=== PATIENT | male | born 1990 | race Caucasian/White ===

== ENCOUNTER 2017-11-28 01:44 | Emergency (ER) | payer SELFPAY ==
[2017-11-28] MEDS ORDERED: DIPH,PERTUS(ACELL)TETVAC-LF 0.5 ML VIAL IM ONE (01:59)
--- NOTE | 2017-11-28 02:02 | ED ---
General Adult HPI - General Chief complaint: Wound/Laceration Stated complaint: Finger Laceration Time Seen by Provider: 11/28/17 01:50 Source: patient, RN notes reviewed Mode of arrival: ambulatory Limitations: no limitations - History of Present Illness Initial comments: This is a 27 her old male who presents emergency Department with a laceration to the distal aspect of his right middle finger. Patient states he was using a kitchen knife and asked that he lacerated his finger. Patient has been drinking. Patient is not up-to-date on tetanus. Patient has full range of motion of all the finger joints. - Related Data Previous Rx's Medication Instructions Recorded Cephalexin [Keflex] 500 mg PO Q6HR #28 cap 11/28/17 Allergies Allergy/AdvReac Type Severity Reaction Status Date / Time pollen extracts Allergy Wheezing Verified 11/28/17 01:55 Review of Systems ROS Statement: Those systems with pertinent positive or pertinent negative responses have been documented in the HPI. ROS Other: All systems not noted in ROS Statement are negative. Past Medical History Past Medical History: Asthma History of Any Multi-Drug Resistant Organisms: None Reported Past Surgical History: No Surgical Hx Reported Past Psychological History: No Psychological Hx Reported Smoking Status: Current every day smoker Past Alcohol Use History: Abuse, Heavy Past Drug Use History: Marijuana General Exam - General Exam Comments Initial Comments: GENERAL Patient is well-developed and well-nourished. Patient is in mild distress. EYES Patient's pupils are equal and round. Extraocular motion is intact SKIN Unremarkable NEURO The patient is alert and oriented 3 PYSCH Patient has normal interpersonal interactions. MUSCULOSKELETAL Patient's right middle finger has a laceration which is half the circumference of his distal finger it angles underneath the nail it almost completely avulsed the nail the distal aspect of the finger is still attached Limitations: no limitations Course Vital Signs 11/28/17 01:51 Temperature 97.8 F Pulse Rate 88 Respiratory 16 Rate Blood Pressure 161/93 O2 Sat by Pulse 98 Oximetry Procedures - Laceration Laceration #1 Consent Obtained: verbal consent Time Out Performed: Yes Indication: laceration Site: other (Right middle finger) Description: flap Depth: simple, single layer Anesthetic Used: lidocaine 1% Anesthesia Technique: nerve block Amount (mls): 3 Pre-repair: wound explored, irrigated extensively Type of Sutures: vicryl Size of Sutures: 4-0 Number of Sutures: 5 Technique: simple, interrupted Complications: bleeding Patient Tolerated Procedure: well Medical Decision Making - Medical Decision Making X-ray shows a fracture of the distal phalanx making this an open fracture. I gave the patient a gram of Ancef Disposition Clinical Impression: Laceration, Phalanx, distal fracture of finger Disposition: HOME SELF-CARE Condition: Good Instructions: Laceration (ED) Additional Instructions: Sutures should be removed in 10 days Prescriptions: Cephalexin [Keflex] 500 mg PO Q6HR #28 cap Referrals: Riki Gregg MD [Primary Care Provider] - 1-2 days
[2017-11-28] MEDS ORDERED: ceFAZolin 1,000 MG VIAL IM STA (02:17)
--- NOTE | 2017-11-28 02:22 | XR ---
EXAMINATION TYPE: XR finger RT DATE OF EXAM: 11/28/2017 COMPARISON: NONE HISTORY: Laceration. Pain. TECHNIQUE: 3 views FINDINGS: There is nondisplaced 3 mm chip fracture of the tuft of the distal phalanx of the middle fi nger. There is some soft tissue deformity of the nailbed. There is no dislocation. IMPRESSION: Small chip fracture. No foreign bodies seen.
[2017-11-28 03:19] VITALS: BP 139/79; PULSE 83; RESP 20; TEMP 97.5
--- NOTE | 2017-12-01 03:00 | CDI ---
Documentation Clarification OP Dear Dr. Fabricio Finney Please provide finger laceration repair length. Thank you, Chris Delgado Manager Emergency If you have any questions, please contact Filler Shredder at [phone] [facility]
== END 2017-11-28 03:19 | disposition home or self-care (01) ==
LOC: EC 01:44
DX: S62.632B Displaced fracture of distal phalanx of right middle finger, initial encounter for open fracture (principal); F17.200 Nicotine dependence, unspecified, uncomplicated; Z23 Encounter for immunization; Z91.048 Other nonmedicinal substance allergy status; W26.0XXA Contact with knife, initial encounter
CPT/HCPCS: 99283; 12001; 96372; 90471; 73140; 90715; J0690; 96374

== ENCOUNTER 2020-01-11 21:27 | Observation (INO) | payer OTHER ==
[~2020-01-11 21:27] MED LIST: THIAMINE 100 MG TAB PO SCH
[2020-01-11] MEDS ORDERED: NALOXONE 0.4 MG/ML 1 ML VIAL IV PRN (22:48)
[2020-01-11] MEDS ORDERED: LORazepam 2 MG/ML INJ IV PRN ×3 (22:49)
--- NOTE | 2020-01-11 22:52 | ED ---
Alcohol HPI - General Chief Complaint: Alcohol Stated Complaint: ETOH Source: patient, EMS Mode of arrival: EMS Limitations: no limitations - History of Present Illness Initial Comments: 29-year-old male presenting today for chief complaint of a call intoxication. Patient was brought in by EMS for occult intoxication after he showed up at his father's place of employment intoxicated. Patient has no complaints. Father states he does not have any other concerns other than his song being intoxicated. FatherLeon denied feeling as though patient was a threat to others or himself.Patient denies any recent fever, chills, shortness of breath, chest pain, back pain, abdominal pain, nausea or vomiting, numbness or tingling, dysuria or hematuria, constipation or diarrhea, headaches or visual changes, or any other complaints. - Related Data Previous Rx's Medication Instructions Recorded Cephalexin [Keflex] 500 mg PO Q6HR #28 cap 11/28/17 Allergies Allergy/AdvReac Type Severity Reaction Status Date / Time pollen extracts Allergy Wheezing Verified 11/28/17 01:55 Review of Systems ROS Statement: Those systems with pertinent positive or pertinent negative responses have been documented in the HPI. ROS Other: All systems not noted in ROS Statement are negative. Past Medical History Past Medical History: Asthma History of Any Multi-Drug Resistant Organisms: None Reported Past Surgical History: No Surgical Hx Reported Past Psychological History: No Psychological Hx Reported Smoking Status: Current every day smoker Past Alcohol Use History: Abuse, Heavy Past Drug Use History: Marijuana General Exam - General Exam Comments Initial Comments: General: The patient is awake and alert, in no distress Eye: Pupils are equal, round and reactive to light, extra-ocular movements are intact. No nystagmus. There is normal conjunctiva bilaterally. No signs of icterus. Ears, nose, mouth and throat: There are moist mucous membranes and no oral lesions. Neck: The neck is supple, there is no tenderness or JVD. Cardiovascular: There is a regular rate and rhythm. No murmur, rub or gallop is appreciated. Respiratory: Lungs are clear to auscultation, respirations are non-labored, breath sounds are equal. No wheezes, stridor, rales, or rhonchi. Gastrointestinal: Soft, non-distended, non-tender abdomen without masses or organomegaly noted. There is no rebound or guarding present. Musculoskeletal: Normal ROM, no tenderness. Strength 5/5. Sensation intact. Radial pulses equal bilaterally 2+. Neurological: A&O x 3. CN II-XII intact grossly , There are no obvious motor or sensory deficits. Coordination appears grossly intact. Speech is normal. Skin: Skin is warm and dry and no rashes or lesions are noted. Psychiatric: Cooperative, appropriate mood & affect, normal judgment. Limitations: no limitations Course Vital Signs 01/11/20 21:46 Temperature 98.6 F Pulse Rate 118 H Respiratory 17 Rate Blood Pressure 156/100 O2 Sat by Pulse 98 Oximetry Medical Decision Making - Medical Decision Making 29yo presenting for intoxication. No concerns for threat harm. Father states he cannot pick him up or bring him to the missionary home intoxicated. Pt states he will stay until sober. Given ETOH over 89 will be admitted for observation and IV fluids. Amrik agreeable to this care plan. Dr. Graff accepted. Disposition Clinical Impression: Alcohol intoxication Disposition: ADMITTED IP TO THIS [facility] Condition: Stable Is patient prescribed a controlled substance at d/c from ED?: No Time of Disposition: 22:54 Decision to Admit Reason: Admit from EC Decision Date: 01/11/20 Decision Time: 22:54
[2020-01-11] MEDS ORDERED: SODIUM CHLORIDE 0.9% 1,000 ML IV SCH (23:00)
[2020-01-11] MEDS ORDERED: THIAMINE 100 MG/ML 2 ML VIAL IM ONE (23:00)
--- NOTE | 2020-01-12 03:19 | P.HPIM ---
History of Present Illness H&P Date: 01/12/20 Chief Complaint: alcohol intoxication 29-year-old male with history of asthma, alcohol abuse With his father intoxicated with alcohol. 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 Patient father did not report any concerns regarding suicide or harm. Patient is doing well at time of interview denies any chest pain trouble breathing coughing denies any headache vision changes patient denies any suicidal or homicidal ideation. He admits that he has depressed mood he is taking Zoloft reports experienced no benefit from it so he stopped it. Patient has history of alcohol abuse in the past and he has relapsed recently. Review of Systems Pertinent positives as noted in HPI. All other systems were reviewed and are negative Past Medical History Past Medical History: Asthma History of Any Multi-Drug Resistant Organisms: None Reported Past Surgical History: No Surgical Hx Reported Past Psychological History: No Psychological Hx Reported Smoking Status: Current every day smoker Past Alcohol Use History: Abuse, Heavy Past Drug Use History: Marijuana - Past Family History family Family Medical History: No Reported History Medications and Allergies Home Medications Medication Instructions Recorded Confirmed Type Cephalexin [Keflex] 500 mg PO Q6HR #28 cap 11/28/17 Rx Allergies Allergy/AdvReac Type Severity Reaction Status Date / Time pollen extracts Allergy Wheezing Verified 11/28/17 01:55 Physical Exam Vitals: Vital Signs Temp Pulse Resp BP Pulse Ox 01/12/20 00:27 62 18 154/92 96 01/11/20 21:46 98.6 F 118 H 17 156/100 98 Intake and Output 01/11/20 01/11/20 01/12/20 14:59 22:59 06:59 Other: Weight 90.718 kg Constitutional: No acute distress, conversant, pleasant Eyes: Anicteric sclerae, moist conjunctiva, no lid-lag Pupils equal round reactive to light ENMT: NC/AT Oropharynx clear, no erythema, or exudates Neck: Supple, FROM, no masses, or JVD No carotid bruits No thyromegaly Lungs: Clear to auscultation Clear to percussion Normal respiratory effort, no accessory muscle use Cardiovascular: Heart regular in rate and rhythm, No murmurs, gallops, or rubs No peripheral edema Abdominal: Soft Nontender, no guarding, rebound or rigidity Abdomen moving with respiration Normoactive bowel sounds No hepatomegaly, No splenomegaly No palpable mass No abdominal wall hernia noted Skin: Normal temperature, tone, texture, turgor No induration No subcutaneous nodules No rash, lesions No ulcers Extremities: No digital cyanosis No clubbing Pedal pulses intact and symmetrical Radial pulses intact and symmetrical No calf tenderness Psychiatric: Alert and oriented to person, place and time Appropriate affect fair judgement Neuro Muscles Strength 5/5 in all 4 extremities Sensation to light touch grossly present throughout Cranial nerves II-XII grossly intact No focal sensory deficits Lymphatics: no palpable cervical or supraclavicular , or inguinal lymph nodes Assessment and Plan Assessment: 29-year-old male with history of alcohol abuse, asthma. Comes in intoxicated with alcohol admitted for close monitoring and IV fluid hydration anticipated length of stay less than 2 midnights Acute severe alcohol intoxication History of alcohol abuse Withdrawal precautions Benzos per CIWA scale Thiamine Seizure precautions IV fluid hydration CODE STATUS: Full code DVT prophylaxis: Mechanical Discussed with: Patient, ER, RN Anticipated length of stay less than [address]: Home A total of 75 minutes was spent on the care of this complex patient more than 50% of the time was spent in counseling and care coordination.
[2020-01-12 09:52] VITALS: BP 152/90; PULSE 87; RESP 14; TEMP 97.8
--- NOTE | 2020-01-12 15:55 | P.DS ---
Providers Date of admission: 01/11/20 23:02 Expected date of discharge: 01/12/20 Attending physician: Brad Graff MD Primary care physician: Stated None Hospital Course: Discharge Diagnosis: Acute alcohol intoxication Asthma without exacerbation Hospital Course: Patient is a 29-year-old male with a history of asthma who was brought into the hospital by his father due to showing up at work intoxicated. On arrival to the ER he was slightly tachycardic with a pulse of 118 and hypertensive with a blood pressure of 156/100. Both of these spontaneously reso lved without definitive management. He was monitored overnight. He was more awake alert and oriented on the morning of 01/11. He states he has been working on cutting down on his drinking at home. He has no intentions of quitting at this point in time and did not feel the need to detox at the hospital. He also states that he does not want to be involved with AA. He did not express any thoughts of self-harm. He was seen by social work and given resources on alcohol cessation programs. He was discharged home in stable condition. Patient seen and examined at bedside. Denies any headache, chest pain, shortness breath, nausea, or vomiting. Vital signs reviewed and stable. General: non toxic, no distress, appears at stated age Derm: warm, dry Head: atraumatic, normocephalic, symmetric Eyes: EOMI, no lid lag, anicteric sclera Mouth: no lip lesion, mucus membranes moist Cardiovascular: S1S2 reg, no murmur, positive posterior tibial pulse bilateral, Lungs: CTA bilateral, no rhonchi, no rales , no accessory muscle use Abdominal: soft, nontender to palpation, no guarding, no appreciable organomegaly Ext: no gross muscle atrophy, no edema, no contractures Neuro: CN II-XI grossly intact, no focal neuro deficits Psych: Alert, oriented, appropriate affect A total of 25 minutes of time were spent preparing this complex discharge summary . Patient Condition at Discharge: Stable Plan - Discharge Summary Discharge Rx Participant: No New Discharge Prescriptions: Discontinued Cephalexin [Keflex] 500 mg PO Q6HR #28 cap Follow up Appointment(s)/Referral(s): Camden Doran Jr, [Doctor of Osteopathic Medicine] - 1 Week Activity/Diet/Wound Care/Special Instructions: Activity: as tolerated Diet: Regular Special Instructions: Abstain from alcohol Do not drink and drive Discharge Disposition: HOME SELF-CARE
[2020-01-12] MEDS ORDERED: THIAMINE 100 MG TAB PO SCH (17:30)
== END 2020-01-12 12:21 | disposition home or self-care (01) ==
LOC: EC 21:27 → 5NMEDONC 23:02 → 1SOBS 01-12 08:39
PROVIDERS: ADMIT Internal Medicine; ATTEND Internal Medicine
DX: F10.129 Alcohol abuse with intoxication, unspecified (principal); J45.909 Unspecified asthma, uncomplicated; Y90.8 Blood alcohol level of 240 mg/100 ml or more; F17.200 Nicotine dependence, unspecified, uncomplicated; F32.9 Major depressive disorder, single episode, unspecified; R03.0 Elevated blood-pressure reading, without diagnosis of hypertension; Z91.048 Other nonmedicinal substance allergy status; Z91.14 Patient's other noncompliance with medication regimen; Z11.59 Encounter for screening for other viral diseases
CPT/HCPCS: 96360; 96361; 99285; G0378 ×3; U0003

== ENCOUNTER 2022-06-30 13:49 | Emergency (ER) | payer OTHER ==
[2022-06-30 14:20] VITALS: BP 149/90; PULSE 100; RESP 20; TEMP 97.7
[2022-06-30] MEDS ORDERED: ORPHENADRINE 30 MG/ML 2 ML VIAL IM STA (15:48)
[2022-06-30] MEDS ORDERED: KETOROLAC 15 MG/ML 1 ML VIAL IVP STA (15:48)
--- NOTE | 2022-06-30 16:23 | XR ---
EXAMINATION TYPE: XR thoracic spine 3 views, XR shoulder complete 3 views RT, XR lumbar spine 3V DATE OF EXAM: 06/30/2022 COMPARISON: NONE HISTORY: 31-year-old male with pain, no injury FINDINGS: Thoracic spine: There are small T12 ribs. All pedicles are visualized. Mild degenerative disc disease with endplate s pondylosis and disc space narrowing mid thoracic spine. Slightly accentuated midthoracic kyphosis. Ve rtebral body heights are preserved and alignment is maintained. Lumbar spine: Slight dextroconvex curvature centered at the upper lumbar spine. Again, small T12 ribs. 5 lumbar typ e vertebral bodies. Facet arthropathy lower lumbar spine. Somewhat short appearance to the pedicles i n the lower lumbar spine could reflect a component of congenital spinal canal narrowing. Vertebral la dy heights and disc spaces are maintained. Right shoulder: There is some distal clavicle osteolysis and moderate capsular hypertrophy at the AC joint. No abnorm al AC joint offset. Subacromial space is preserved. No tendinous or bursal calcifications. No acute f racture, subluxation, dislocation. IMPRESSION: 1. Right shoulder: Some distal clavicle osteolysis and moderate swelling of the AC joint capsule. Cor relate for repetitive microinjury such as from weight lifting or a recent trauma. Consider orthopedic follow-up. Otherwise, no acute osseous abnormality seen. 2. Thoracic spine: Mild degenerative disc disease midthoracic spine and accentuated mid thoracic kyph osis. No vertebral compression collapse or malalignment. 3. Lumbar spine: Slight dextroconvex curvature/scoliosis centered along the upper lumbar spine. Facet arthropathy lower lumbar spine. Somewhat short appearance to the pedicles in the lower lumbar spine could reflect a component of congenital spinal canal narrowing. No vertebral compression collapse or malalignment.
--- NOTE | 2022-06-30 20:46 | ED ---
Back Pain HPI - General Chief Complaint: Back Pain/Injury Stated Complaint: Back Pain,Shoulder Pain Time Seen by Provider: 06/30/22 15:40 Source: patient Limitations: no limitations - History of Present Illness Initial Comments: Patient is a 31-year-old male who presents to the emergency department with a chief complaint of back pain. Patient states symptoms started 2 days ago. He denies injury however states he is very active at work. He works at a factory. Pain is in the middle and lower back. There is no radiation. It is worsened with movement of the torso. Took Advil yesterday with some relief. He denies pain, numbness, tingling, and weakness in her legs. Denies numbness and tingling in the groin and buttock region. Denies loss of bowel or bladder function. Denies fever, chills, urinary symptoms. Patient also complains of chronic right shoulder pain. States he feels it most often after using the right shoulder to lift things a lot at work. Pain worsened with flexion of the shoulder. He denies numbness and tingling of the shoulder and right upper extremity. He is never been medically evaluated for this issue. - Related Data Allergies Allergy/AdvReac Type Severity Reaction Status Date / Time pollen extracts Allergy Wheezing Verified 11/28/17 01:55 Review of Systems ROS Statement: Those systems with pertinent positive or pertinent negative responses have been documented in the HPI. ROS Other: All systems not noted in ROS Statement are negative. Past Medical History Past Medical History: Asthma History of Any Multi-Drug Resistant Organisms: None Reported Past Surgical History: No Surgical Hx Reported Past Psychological History: Depression Smoking Status: Current every day smoker Past Alcohol Use History: Abuse, Heavy Past Drug Use History: Marijuana - Past Family History family Family Medical History: No Reported History General Exam Limitations: no limitations General appearance: alert, in no apparent distress Head exam: Present: atraumatic, normocephalic, normal inspection Respiratory exam: Present: normal lung sounds bilaterally. Absent: respiratory distress, wheezes, rales, rhonchi, stridor Cardiovascular Exam: Present: regular rate, normal rhythm, normal heart sounds. Absent: systolic murmur, diastolic murmur, rubs, gallop, clicks Right Shoulder Exam: Present: normal inspection, full ROM, tenderness (trapezius muscle ). Absent: laceration, ecchymosis, deformity, crepitus, dislocation, tenderness over AC joint Back exam: Present: normal inspection, full ROM, paraspinal tenderness (thoracic and lumbar, bilateral ), vertebral tenderness (thoracic and lumbar). Absent: rash noted Neurological exam: Present: alert, oriented X3, CN II-XII intact Psychiatric exam: Present: normal affect, normal mood Skin exam: Present: warm, dry, intact, normal color. Absent: rash Course Vital Signs 06/30/22 14:17 Temperature 97.7 F Pulse Rate 100 Respiratory 20 Rate Blood Pressure 149/90 O2 Sat by Pulse 98 Oximetry Medical Decision Making - Medical Decision Making This is a 31-year-old presenting with back pain.No symptoms or signs of cauda equina. No radicular symptoms. Thoracic and lumbar x-ray was obtained and interpreted by me which shows no acute process. Right shoulder x-ray obtained due to chronic pain which was interpreted by me and shows some distal clavicle osculate sesamoid moderate swelling of the AC joint capsule, reflective of repetitive micro-injury Toradol and Norvasc given. Patient left before results could be discussed. Unfortunately due to leaving he could not be referred to differential specialist. Dr. Douglas is my attending. Disposition Clinical Impression: Mechanical back pain, Shoulder pain, right Disposition: HOME SELF-CARE Condition: Good Is patient prescribed a controlled substance at d/c from ED?: No Referrals: Camden Doran Jr, DO [Primary Care Provider] - 1-2 days
== END 2022-06-30 17:10 | disposition home or self-care (01) ==
LOC: EC 13:49
DX: M54.50 Low back pain, unspecified (principal); M25.511 Pain in right shoulder; J45.909 Unspecified asthma, uncomplicated; F32.A Depression, unspecified; F17.200 Nicotine dependence, unspecified, uncomplicated; F10.10 Alcohol abuse, uncomplicated; F12.90 Cannabis use, unspecified, uncomplicated; Z91.030 Bee allergy status
CPT/HCPCS: 72070; 72100; 73030; 99283; 96374; 96372; J2360; J1885

== ENCOUNTER 2023-01-04 15:26 | Inpatient (IN) | payer OTHER ==
[2023-01-04] MEDS ORDERED: SODIUM CHLORIDE 0.9% 1,000 ML IV STA (15:32)
[2023-01-04 15:47] VITALS: RESP 18
--- NOTE | 2023-01-04 15:54 | ED ---
General Adult HPI - General Stated complaint: ETOH Time Seen by Provider: 01/04/23 15:32 Source: patient, EMS, RN notes reviewed Mode of arrival: EMS Limitations: altered mental status - History of Present Illness Initial comments: 32-year-old male presents emergency department via EMS for evaluation of acute alcohol intoxication. Patient states been drinking very heavily today states he does not have any place to live. Patient was found trying to enter [facility]. Patient denies any complaints. Denies headache, dizziness, neck pain, chest pain or abdominal pain or any extremity injury. - Related Data Allergies Allergy/AdvReac Type Severity Reaction Status Date / Time pollen extracts Allergy Wheezing Verified 11/28/17 01:55 Review of Systems ROS Statement: Those systems with pertinent positive or pertinent negative responses have been documented in the HPI. ROS Other: All systems not noted in ROS Statement are negative. Past Medical History Past Medical History: Asthma History of Any Multi-Drug Resistant Organisms: None Reported Past Surgical History: No Surgical Hx Reported Past Psychological History: Depression Smoking Status: Current every day smoker Past Alcohol Use History: Abuse, Heavy Past Drug Use History: Marijuana - Past Family History family Family Medical History: No Reported History General Exam Limitations: no limitations General appearance: alert, in no apparent distress, appears intoxicated Head exam: Present: atraumatic, normocephalic, normal inspection Eye exam: Present: normal appearance, PERRL, EOMI. Absent: scleral icterus, conjunctival injection, periorbital swelling ENT exam: Present: normal exam, mucous membranes moist Neck exam: Present: normal inspection, full ROM. Absent: tenderness, meni ngismus, lymphadenopathy Respiratory exam: Present: normal lung sounds bilaterally. Absent: respiratory distress, wheezes, rales, rhonchi, stridor Cardiovascular Exam: Present: regular rate, normal rhythm, normal heart sounds. Absent: systolic murmur, diastolic murmur, rubs, gallop, clicks GI/Abdominal exam: Present: soft, normal bowel sounds. Absent: distended, tenderness, guarding, rebound, rigid Course Vital Signs 01/04/23 15:43 Temperature 98.9 F Pulse Rate 122 H Respiratory 18 Rate Blood Pressure 135/85 O2 Sat by Pulse 95 Oximetry Medical Decision Making - Medical Decision Making Was pt. sent in by a medical professional or institution (, PA, VEHICLE SERVICE AGENT, urgent care, hospital, or fdc...) When possible be specific @ -No Did you speak to anyone other than the patient for history (EMS, parent, family, police, friend...)? What history was obtained from this source @ -EMS provided prehospital care and treatment Did you review nursing and triage notes (agree or disagree)? Why? @ -I reviewed and agree with nursing and triage notes Were old charts reviewed (outside hosp., previous admission, EMS record, old EKG, old radiological studies, urgent care reports/EKG's, fdc records)? Report findings @ -No old charts were reviewed Differential Diagnosis (chest pain, altered mental status, abdominal pain women, abdominal pain men, vaginal bleeding, weakness, fever, dyspnea, syncope, headache, dizziness, GI bleed, back pain, seizure, CVA, palpatations, mental health, musculoskeletal)? @ -Alcohol intoxication, drug abuse EKG interpreted by me (3pts min.). @ -None X-rays interpreted by me (1pt min.). @ -None done CT interpreted by me (1pt min.). @ -None done U/S interpreted by me (1pt. min.). @ -None done What testing was considered but not performed or refused? (CT, X-rays, U/S, labs)? Why? @ -None What meds were considered but not given or refused? Why? @ -None Did you discuss the management of the patient with other professionals (doreen fields i.e. , PA, VEHICLE SERVICE AGENT, lab, RT, psych nurse, social media marketer, sunday school missionary, teacher, court registry officer, community case manager)? Give summary @ -Dr. Doran who was familiar with the patient's patient will be admitted for alcohol intoxication, psychiatric evaluation Was smoking cessation discussed for >3mins.? @ -No Was critical care preformed (if so, how long)? @ -No Were there social determinants of health that impacted care today? How? (Homelessness, low income, unemployed, alcoholism, drug addiction, transportation, low edu. Level, literacy, decrease access to med. care, skilled nursing, rehab)? @ -No Was there de-escalation of care discussed even if they declined (Discuss DNR or withdrawal of care, Hospice)? DNR status @ -No What co-morbidities impacted this encounter? (DM, HTN, Smoking, COPD, CAD, Cancer, CVA, ARF, Chemo, Hep., AIDS, mental health diagnosis, sleep apnea, morbid obesity)? @ -None Was patient admitted / discharged? Hospital course, mention meds given and route, prescriptions, significant lab abnormalities, going to OR and other pertinent info. @ -Admitted patient has severe alcohol intoxication patient will be admitted for further treatment and evaluation Undiagnosed new problem with uncertain prognosis? @ -No Drug Therapy requiring intensive monitoring for toxicity (Heparin, Nitro, Insulin, Cardizem)? @ -No Were any procedures done? @ -No Diagnosis/symptom? @ -Alcohol intoxication Acute, or Chronic, or Acute on Chronic? @ -Acute Uncomplicated (without systemic symptoms) or Complicated (systemic symptoms)? @ -Uncomplicated. Side effects of treatment? @ -No Exacerbation, Progression, or Severe Exacerbation? @ -No Poses a threat to life or bodily function? How? (Chest pain, USA, PA, pneumonia, PE, COPD, DKA, ARF, appy, cholecystitis, CVA, Diverticulitis, Homicidal, Suicidal, threat to staff... and all critical care pts) @ -No - Lab Data Result diagrams: 01/04/23 15:53 01/04/23 15:53 Lab Results 01/04/23 01/04/23 Range/Units 15:53 15:53 WBC 6.9 (3.8-10.6) k/uL RBC 4.82 (4.30-5.90) m/uL Hgb 15.8 (13.0-17.5) gm/dL Hct 47.7 (39.0-53.0) % MCV 99.0 (80.0-100.0) fL MCH 32.8 (25.0-35.0) pg MCHC 33.1 (31.0-37.0) g/dL RDW 12.2 (11.5-15.5) % Plt Count 228 (150-450) k/uL MPV 7.2 Neutrophils % 53 % Lymphocytes % 32 % Monocytes % 8 % Eosinophils % 2 % Basophils % 0 % Neutrophils # 3.6 (1.3-7.7) k/uL Lymphocytes # 2.2 (1.0-4.8) k/uL Monocytes # 0.6 (0-1.0) k/uL Eosinophils # 0.2 (0-0.7) k/uL Basophils # 0.0 (0-0.2) k/uL Sodium 149 H (137-145) mmol/L Potassium 4.1 (3.5-5.1) mmol/L Chloride 111 H (98-107) mmol/L Carbon Dioxide 24 (22-30) mmol/L Anion Gap 14 mmol/L BUN 11 (9-20) mg/dL Creatinine 0.83 (0.66-1.25) mg/dL Est GFR (CKD-EPI)AfAm >90 (>60 ml/min/1.73 sqM) Est GFR (CKD-EPI)NonAf >90 (>60 ml/min/1.73 sqM) Glucose 114 H (74-99) mg/dL Calcium 9.1 (8.4-10.2) mg/dL Magnesium 1.9 (1.6-2.3) mg/dL Total Bilirubin 0.3 (0.2-1.3) mg/dL AST 48 (17-59) U/L ALT 62 H (4-49) U/L Alkaline Phosphatase 49 (38-126) U/L Total Protein 7.4 (6.3-8.2) g/dL Albumin 4.5 (3.5-5.0) g/dL Serum Alcohol 415 H* mg/dL Disposition Clinical Impression: Alcohol intoxication, Alcohol abuse Disposition: ADMITTED IP TO THIS HOSP Condition: Fair Referrals: Camden Doran Jr, DO [Primary Care Provider] - 1-2 days Time of Disposition: 16:40
[2023-01-04 16:14] LABS: ALT 62 U/L (4-49); AST 48 U/L (17-59); African American GFR (CKD) >90 (>60 ml/min/1.73 sqM); Albumin 4.5 g/dL (3.5-5.0); Alkaline Phosphatase 49 U/L (38-126); Anion Gap 14 mmol/L; Blood Urea Nitrogen 11 mg/dL (9-20); Calcium 9.1 mg/dL (8.4-10.2); Carbon Dioxide 24 mmol/L (22-30); Chloride 111 mmol/L (98-107); Glucose 114 mg/dL (74-99); Magnesium 1.9 mg/dL (1.6-2.3); Non-African American GFR(CKD) >90 (>60 ml/min/1.73 sqM); Potassium 4.1 mmol/L (3.5-5.1); Sodium 149 mmol/L (137-145); Total Bilirubin 0.3 mg/dL (0.2-1.3); Total Protein 7.4 g/dL (6.3-8.2)
[2023-01-04 16:27] LABS: Alcohol 415 mg/dL
[2023-01-04 16:36] LABS: Basophils % (A) 0 %; Eosinophils # (A) 0.2 k/uL (0-0.7); Eosinophils % (A) 2 %; HCT 47.7 % (39.0-53.0); HGB 15.8 gm/dL (13.0-17.5); Lymphocytes # (A) 2.2 k/uL (1.0-4.8); Lymphocytes % (A) 32 %; MCH 32.8 pg (25.0-35.0); MCHC 33.1 g/dL (31.0-37.0); Mean Platelet Volume 7.2; Monocytes # (A) 0.6 k/uL (0-1.0); Monocytes % (A) 8 %; Neutrophils # (A) 3.6 k/uL (1.3-7.7); Neutrophils % (A) 53 %; Platelet Count 228 k/uL (150-450); RBC 4.82 m/uL (4.30-5.90); RDW 12.2 % (11.5-15.5); WBC 6.9 k/uL (3.8-10.6)
[2023-01-04] MEDS ORDERED: LORazepam 0.5 MG TAB PO PRN (16:45)
[2023-01-04] MEDS ORDERED: LORazepam 1 MG TAB PO PRN ×3 (16:45)
[2023-01-04] MEDS ORDERED: NALOXONE 0.4 MG/ML 1 ML VIAL IV PRN (16:46)
[2023-01-04] MEDS ORDERED: ONDANSETRON 4 MG/2 ML VIAL IVP PRN (16:46)
[2023-01-04] MEDS ORDERED: SODIUM CHLORIDE 0.9% 1,000 ML IV SCH (17:00)
[2023-01-04 18:11] VITALS: BP 140/79; PULSE 88; TEMP 98
[2023-01-05] MEDS ORDERED: THIAMINE 100 MG TAB PO SCH (09:00)
== END 2023-01-04 20:13 | disposition left against medical advice (07) | DRG 770 ==
LOC: EC 15:26 → 4SSUR 16:45
PROVIDERS: ADMIT Family Medicine; ATTEND Family Medicine
DX: F10.129 Alcohol abuse with intoxication, unspecified (principal); Y90.8 Blood alcohol level of 240 mg/100 ml or more; F17.200 Nicotine dependence, unspecified, uncomplicated
CPT/HCPCS: 36415; 80053; 80320; 83735; 85025; 99285